=== PATIENT | female | born 1955 | race Caucasian/White ===

== ENCOUNTER 2017-06-18 20:43 | Emergency (ER) | payer BC ==
[2017-06-18 21:23] VITALS: BP 151/92
[2017-06-18] MEDS ORDERED: Famotidine TAB* 20 MG PO ONE (22:16)
[2017-06-18] MEDS ORDERED: predniSONE TAB* 20 MG PO ONE (22:16)
--- NOTE | 2017-06-18 22:28 | UC ---
Bite Injury/Animal HPI - HPI Summary HPI Summary: Pt presents with a bee sting to left anterior foot - occuring 1 hour [employer]. Pt took 50mg benadryl [employer]. Pt reports burning pain at the site. Pt state several years ago had facial swelling and throat tightness following a bee sting - but was stung on the neck at this time. Pt concerned will develop additional sx. At time of evaluation, pt without any complaints. Pt denies cp, sob, lightheadedness. Denies nausea, vomiting, light headedness, cp, sob, difficulty swallowing, drooling Pt's medications reviewed this visit - History of Current Complaint Chief Complaint: UCLowerExtremity Stated Complaint: BEE STING Time Seen by Provider: 06/18/17 22:07 Hx Obtained From: Patient ?: No Severity Currently: Mild Severity Initially: Mild Pain Intensity: 3 Pain Scale Used: 0-10 Numeric Onset/Duration: Sudden Onset Type of Bite: Animal Associated Signs And Symptoms: Positive: Erythema, Swelling - Allergies/Home Medications Allergies/Adverse Reactions: Allergies Allergy/AdvReac Type Severity Reaction Status Date / Time Bee Venom Allergy Severe Swelling Verified 06/18/17 21:23 Home Medications: Home Medications Bp Med* 1 tab PO DAILY 06/18/17 [History Confirmed 06/18/17] Epinephrine [Epipen 2-Soham] 0.3 mg IM PRN 06/18/17 [History] diPHENhydraMINE PO* [Benadryl PO 25 MG TAB*] 50 mg PO PRN 06/18/17 [History] PMH/Surg Hx/FS Hx/Imm Hx Previously Healthy: Yes Cardiovascular History: Hypertension - Surgical History Surgical History: Yes Surgery Procedure, Year, and Place: RIGHT HIP REPLACEMENT - Family History Known Family History: Positive: Respiratory Disease - Social History Occupation: Employed Full-time Lives: With Family Alcohol Use: Occasionally Substance Use Type: None Smoking Status (MU): Never Smoked Tobacco Review of Systems Constitutional: Negative Skin: Other - erythema 3x4 cm erythema dorsum left foot. small visible puncture. no hives Eyes: Negative ENT: Negative Respiratory: Negative Cardiovascular: Negative Gastrointestinal: Negative Genitourinary: Negative Motor: Negative Neurovascular: Negative Musculoskeletal: Negative Neurological: Negative Psychological: Negative All Other Systems Reviewed And Are Negative: Yes Physical Exam Triage Information Reviewed: Yes Appearance: Well-Appearing, Well-Nourished, Pain Distress - mild discomfot dorsum foot Vital Signs: Initial Vital Signs Temp 98.1 F 06/18/17 21:19 Pulse 57 06/18/17 21:19 Resp 16 06/18/17 21:19 BP 151/92 06/18/17 21:19 Pulse Ox 97 06/18/17 21:19 Eye Exam: Normal ENT Exam: Normal Dental Exam: Normal Neck exam: Normal Neck: Positive: Supple, Nontender, No Lymphadenopathy Respiratory Exam: Normal Respiratory: Positive: Chest non-tender, Lungs clear, Normal breath sounds, No respiratory distress Cardiovascular Exam: Normal Cardiovascular: Positive: RRR, No Murmur Abdominal Exam: Normal Abdomen Description: Positive: Nontender, No Organomegaly Musculoskeletal Exam: Normal Neurological Exam: Normal Psychological Exam: Normal Skin Exam: Normal Bite Injury Course/Dx - Course Course Of Treatment: Pt with bee sting to dorsum to left foot. Pt with area of erythema and discomfort. no systemic sx. Pt with h/o facial swelling from previous sting - ? local reaction. Will give pred, pepcid. cool soaks. Pt took Bendaryl. Pt comfortable and in agreement with plan. Pt's BP noted to be elevated at this visit - recomend follow with pcp - Differential Dx/Diagnosis Provider Diagnoses: bee sting Discharge - Discharge Plan Condition: Stable Disposition: HOME Prescriptions: Famotidine TAB* [Pepcid 20 MG TAB*] 20 mg PO DAILY #5 tab predniSONE TAB* [Deltasone TAB*] 40 mg PO DAILY #8 tab Patient Education Materials: Insect Bite or Sting (ED) Referrals: Anna Bneson NP [Primary Care Provider] - Additional Instructions: - stay well hydrated -drink plenty of non-alcoholic, non-caffinated - Take pepcid daily as prescribed for 5 days - Take prendisone once daily as prescribed until gone - Okay to take Benadryl (1-2 tablets) every 6 hours as needed. This medication may cause drowsiness - do NOT drive, operate machinery or drink alcohol while taking Benadryl -Avoid getting over heated (hot showers, hot tubs, exercise) for at least 48 hours - Try to avoid aspirin, NSAIDs (Motrin, Aleve, Naprosyn) for 2-3 days - Okay to apply cool compresses to the area of injury -Contact your doctor or return here with questions or concerns
== END 2017-06-18 22:28 | disposition home or self-care (01) ==
LOC: UCEAST 20:43
DX: T63.441A Toxic effect of venom of bees, accidental (unintentional), initial encounter (principal); Y92.9 Unspecified place or not applicable; I10 Essential (primary) hypertension; Z96.641 Presence of right artificial hip joint
CPT/HCPCS: 99202; A9270-GY; G0463; J7512